=== PATIENT | male | born 1990 | race Two or more races ===

== ENCOUNTER 2022-05-25 00:24 | Emergency (ER) | payer OTHER ==
[~2022-05-25] VITALS: Ht 188 cm; Wt 89.8 kg
[2022-05-25] MEDS ORDERED: MEDROLPACK PO (02:39)
[2022-05-25] MEDS ORDERED: METAXALONE800 MG PO (02:39)
[2022-05-25] MEDS ORDERED: ULTRACET PO (02:39)
[2022-05-25] MEDS ORDERED: CELEBREX200MG PO (02:39)
== END 2022-05-25 02:46 | disposition home or self-care (01) ==
LOC: ER 00:24
DX: S39.012A Strain of muscle, fascia and tendon of lower back, initial encounter (principal); X58.XXXA Exposure to other specified factors, initial encounter; Y93.67 Activity, basketball; Y92.310 Basketball court as the place of occurrence of the external cause; Y99.9 Unspecified external cause status

== ENCOUNTER 2023-05-24 08:13 | Emergency (ER) | payer OTHER ==
[~2023-05-24] VITALS: Ht 188 cm; Wt 90.7 kg
[~2023-05-24 08:13] MED LIST: CELEBREX200MG PO; MEDROLPACK PO; METAXALONE800 MG PO; ULTRACET PO
[2023-05-24 09:26] LABS: HEMATOCRIT 46.7 % (39.0-48.0); HEMOGLOBIN 15.8 g/dL (13-16.00); MEAN CELL VOLUME 89.8 fL (80.0-100.00); MEAN CORPUSCULAR HEMOGLOBIN 30.4 pg (27.00-32.0); MEAN CORPUSCULAR HGB CONC 33.8 g/dl (32.0-36.0); PLATELET COUNT 243 K/uL (150-450); RED CELL DISTRIBUTION WIDTH 13.2 % (11.5-14.5)
== END 2023-05-24 10:34 | disposition home or self-care (01) ==
LOC: ER 08:13
PROVIDERS: General Practice
DX: R05.9 Cough, unspecified (principal); Z20.822 Contact with and (suspected) exposure to COVID-19